=== PATIENT | female | born 1950 | race Caucasian/White ===

== ENCOUNTER → 2016-10-10 | Outpatient (CLI) | payer MEDICARE ==
--- NOTE | 2016-10-10 11:25 | MM ---
Reason for exam: screening (asymptomatic). Last mammogram was performed 1 year ago. History: Patient is postmenopausal. Family history of breast cancer in paternal aunt at age 61 and breast cancer in cousin at age 47. Physical Findings: A clinical breast exam by your physician is recommended on an annual basis and results should be correlated with mammographic findings. MG 3D Screening Mammo W/Cad Bilateral CC and MLO view(s) were taken. Prior study comparison: October 05, 2015, bilateral MG screening mammo w CAD. June 05, 2014, bilateral MG screening mammo w CAD. There are scattered fibroglandular densities. There is no discrete abnormality. No significant changes when compared with prior studies. ASSESSMENT: Negative, BI-RAD 1 RECOMMENDATION: Routine screening mammogram of both breasts in 1 year.
--- NOTE | 2016-10-10 17:02 | BD ---
EXAMINATION TYPE: MG DEXA axial skeleton. DATE OF EXAM: 10/10/2016 CLINICAL HISTORY: 66-year-old female osteoporosis Height: 60.25 Weight: 171 FRAX RISK QUESTIONS: Alcohol (3 or more units per day): no Family History (Parent hip fracture): no Glucocorticoids (More than 3mos): no (Ex: prednisone, prednisolone, methylprednisolone, dexamethasone, and hydrocortisone). History of Fracture in Adulthood: no Secondary Osteoporosis: 1. Type 1 Diabetes: no 2. Hyperthyroidism: no 3. Menopause before 45: no 4. Malnutrition: no 5. Chronic liver disease: no Rheumatoid Arthritis: no Current Tobacco Use: no RISK FACTORS HISTORY OF: Hip Fracture (Right/Left): no Spine Fracture: no History of Wrist Fracture: no Surgery to Spine/Hip(right/left)/Wrist (right/left): no Family History of Osteoporosis: yes Active: yes Diet low in dairy products/other sources of calcium: no Postmenopausal woman: yes Take estrogen and/or progesterone medications: no Lost more than 2 inches in height since high school: unsure; states height at one time may have been about 62 inches Frequent falls: no Poor Health: no Hyperparathyroidism: no Adrenal Insufficiency: no MEDICATIONS: Prednisone or other steroids: no Thyroid Medications: no Osteoporosis Medications: no Additional Medications: cholesterol meds, blood pressure meds EXAM MEASUREMENTS: Bone mineral densitometry was performed using the [employer] System. Bone mineral density as measured about the Lumbar spine is: ----- L1-L4(G/cm2): 1.193 T Score Values are as follows: ----- L2: -1.3 ----- L3: 1.3 ----- L4: 0.9 ----- L1-L4: 0.1 Bone mineral density has: Decreased -0.5% since study of: 03/11/2013 Bone mineral density about the R hip (g/cm2): 0.918 Bone mineral density about the L hip (g/cm2): 0.917 T Score values are as follows: -----R Neck: -0.9 -----L Neck: -0.9 -----R Total: -0.1 -----L Total: -0.1 Bone mineral density has: Increased 1.4% since study of: 03/11/2013 IMPRESSION: Osteopenia (as indicated by T score values average between L1 and L2 vertebral bodies). There is slightly increased risk of fracture and the patient may be considered for treatment. Re-Screen 2-5 years. NOTE: T-SCORE=SD OF THE YOUNG ADULT MEAN.
== END | disposition home or self-care (01) ==
LOC: RADMAMWWP 07:35
PROVIDERS: ATTEND Internal Medicine Geriatric Medicine
DX: Z12.31 Encounter for screening mammogram for malignant neoplasm of breast (principal); M85.80 Other specified disorders of bone density and structure, unspecified site
CPT/HCPCS: 77080; 77063; G0202

== ENCOUNTER 2018-01-02 10:47 | Day surgery (SDC) | payer MEDICARE ==
[2017-12-31 13:55] VITALS: BMI 32.1
[~2018-01-02 10:47] MED LIST: LACTATED RINGERS 1,000 ML IV SCH; LIDOCAINE 1% 20 ML VIAL (10MG/ML) FOR IV START INTRADERMA PRN
[2018-01-02 11:05] VITALS: RESP 16; TEMP 97.9
[2018-01-02] MEDS ORDERED: PROPOFOL 10 MG/ML 20 ML VIAL IV ONE (12:10)
[2018-01-02] MEDS ORDERED: LIDOCAINE 1% INJ 10MG/ML (20 ML MDV) ONE (12:10)
--- NOTE | 2018-01-02 12:25 | P.PCN ---
Date of Procedure: 01/02/18 Procedure(s) Performed: BRIEF HISTORY: Patient is a 67-year-old pleasant female, scheduled for an elective colonoscopy as a part of evaluation of change in bowel habits and lower abdominal pain for the last 1 month duration. She also has prior history of colon polyps. PROCEDURE PERFORMED: Colonoscopy. PREOPERATIVE DIAGNOSIS: History of colon polyps/change in bowel habits. IV sedation per Anesthesia. PROCEDURE: After informed consent was obtained, the patient, was brought into the endoscopy unit. IV sedation was administered by Anesthesia under continuous monitoring. Digital rectal examination was normal. Initially the Olympus CF- 160 flexible video colonoscope was then inserted in the rectum, gradually advanced into the cecum without any difficulty. Careful examination was performed as the scope was gradually being withdrawn. Ileocecal valve and the appendiceal orifice were visualized and appeared normal. Prep was excellent. Mucosa of the cecum, ascending colon, transverse colon, descending colon, sigmoid colon, and rectum appeared normal. Scattered sigmoid diverticula cyst. Retroflexion was performed in the rectum and no lesions were seen. The patient tolerated the procedure well. IMPRESSION: Normal-appearing colon from rectum to cecum with no evidence of colorectal neoplasia . Scattered sigmoidal diverticulosis. RECOMMENDATIONS: Findings of this examination were discussed with the patient as well as a family. She was advised to have a repeat surveillance colonoscopy in 5 years from now because of the prior history of colon polyps.
[2018-01-02 12:57] VITALS: BP 148/86; PULSE 52
== END 2018-01-02 13:14 | disposition home or self-care (01) ==
LOC: ORWHC2ENDO 10:47
PROVIDERS: ATTEND Internal Medicine Gastroenterology
DX: K57.30 Diverticulosis of large intestine without perforation or abscess without bleeding (principal); Z87.19 Personal history of other diseases of the digestive system; E78.5 Hyperlipidemia, unspecified; Z88.5 Allergy status to narcotic agent; Z91.048 Other nonmedicinal substance allergy status; Z79.82 Long term (current) use of aspirin; Z79.899 Other long term (current) drug therapy
CPT/HCPCS: 45378; J2001; J2704

== ENCOUNTER → 2018-11-20 | Outpatient (CLI) | payer MEDICARE ==
--- NOTE | 2018-11-20 15:32 | BD ---
EXAMINATION TYPE: Axial Bone Density DATE OF EXAM: 11/20/2018 COMPARISON: 2017 CLINICAL HISTORY: M [age] Height: 4 FT 11 1/2 IN Weight: 171 FRAX RISK QUESTIONS: RISK FACTORS HISTORY OF: Active: YES Postmenopausal woman: TOTAL HYST AGE 53 Lost more than 2 inches in height since high school: YES MEDICATIONS: Additional Medications: SIMVASTATIN, HYDROCHLOROTHIAZIDE Additional History: EXAM MEASUREMENTS: Bone mineral densitometry was performed using the [employer] System. Bone mineral density as measured about the Lumbar spine is: ----- L1-L4(G/cm2): 1.230 T Score Values are as follows: ----- L2: -0.4 ----- L3: 1.6 ----- L4: 1.0 ----- L1-L4: 0.4 Bone mineral density has: INCREASED 3.9 % since study of: 2016 Bone mineral density about the R hip (g/cm2): 0.886 Bone mineral density about the L hip (g/cm2): 0.880 T Score values are as follows: -----R Neck: -1.1 -----L Neck: -1.1 -----R Total: -0.5 -----L Total: -0.5 Bone mineral density has: DECREASED -5.5 % since study of: 2016 IMPRESSION: Osteopenia (T Score between -2.5 and -1). There is slightly increased risk of fracture and the patient may be considered for treatment. Re-Screen 2-5 years. NOTE: T-SCORE=SD OF THE YOUNG ADULT MEAN.
--- NOTE | 2018-11-21 12:07 | MM ---
Reason for exam: screening (asymptomatic). Last mammogram was performed 2 years and 1 month ago. History: Patient is postmenopausal. Family history of breast cancer in paternal aunt at age 61 and breast cancer in cousin at age 47. MG 3D Screening Mammo W/Cad Bilateral CC and MLO view(s) were taken. Prior study comparison: October 10, 2016, bilateral MG 3d screening mammo w/cad. October 05, 2015, bilateral MG screening mammo w CAD. There are scattered fibroglandular densities. There is a similar faint 2mm group of calcifications in the upper central right breast at middle depth compared to 2016. No suspicious abnormality. No significant changes when compared with prior studies. ASSESSMENT: Benign, BI-RAD 2 RECOMMENDATION: Routine screening mammogram of both breasts in 1 year.
== END | disposition home or self-care (01) ==
LOC: RADMAMWWP 09:35
PROVIDERS: ATTEND Internal Medicine Geriatric Medicine
DX: Z12.31 Encounter for screening mammogram for malignant neoplasm of breast (principal); M81.0 Age-related osteoporosis without current pathological fracture; M85.80 Other specified disorders of bone density and structure, unspecified site
CPT/HCPCS: 77063; 77067; 77080

== ENCOUNTER → 2020-03-01 | Outpatient (CLI) | payer MEDICARE ==
--- NOTE | 2020-03-01 15:49 | CT ---
EXAMINATION TYPE: CT abdomen pelvis wo con DATE OF EXAM: 03/01/2020 HISTORY: lower anterior abdominal pain CT DLP: 564.3 mGycm. Automated Exposure Control for Dose Reduction was Utilized. TECHNIQUE: CT scan of the abdomen and pelvis is performed without oral or IV contrast. COMPARISON: NONE FINDINGS: Within the limitations of a non-contrast study, the following observations are made. LUNG BASES: No significant abnormality is appreciated. LIVER/GB: No significant abnormality is appreciated. PANCREAS: No significant abnormality is seen. SPLEEN: No significant abnormality is seen. ADRENALS: No significant abnormality is seen. KIDNEYS: No renal stones or hydronephrosis is present bilaterally. BOWEL: Some diverticula scattered throughout the left and sigmoid colon. No CT evidence for acute div erticulitis. No suspicious small or large bowel dilatation. GENITAL ORGANS: Uterus surgically absent or markedly atrophic. LYMPH NODES: No greater than 1cm abdominal or pelvic lymph nodes are appreciated. OSSEOUS STRUCTURES: Moderate disc space narrowing and vacuum disc phenomenon L3-L4 level and L4-L5 le vels. Slight grade 1 retrolisthesis L2 on L3 with mild/moderate disc space narrowing and anterior spu rring. Facet arthropathy lower lumbar levels. OTHER: No significant additional abnormality is seen. IMPRESSION: No bowel obstruction. No acute findings are evident on noncontrast CT. Colonic diverticul osis without convincing CT evidence for acute diverticulitis.
== END | disposition home or self-care (01) ==
LOC: RADCTMAIN 14:09
PROVIDERS: ATTEND Internal Medicine Geriatric Medicine
DX: R10.30 Lower abdominal pain, unspecified (principal)
CPT/HCPCS: 74176

== ENCOUNTER 2020-04-19 09:58 | Day surgery (SDC) | payer MEDICARE ==
[2020-04-16 13:40] VITALS: BMI 31.9
[2020-04-19 10:45] VITALS: RESP 18; TEMP 99.3
[2020-04-19] MEDS ORDERED: LACTATED RINGERS 1,000 ML IV ONE (10:54)
[2020-04-19] MEDS ORDERED: PROPOFOL 10 MG/ML 20 ML VIAL IV ONE (11:35)
[2020-04-19] MEDS ORDERED: LIDOCAINE 1% INJ 10MG/ML (20 ML MDV) ONE (11:35)
--- NOTE | 2020-04-19 11:54 | P.PCN ---
Date of Procedure: 04/19/20 Procedure(s) Performed: BRIEF HISTORY: Patient is a 70-year-old pleasant female scheduled for an elective colonoscopy as a part of evaluation of positive cologuard. She has been complaining of intermittent lower abdominal pain for the last 6 weeks duration. PROCEDURE PERFORMED: Colonoscopy. PREOPERATIVE DIAGNOSIS: Positive cologuard. IV sedation per Anesthesia. PROCEDURE: After informed consent was obtained, the patient, was brought into the endoscopy unit. IV sedation was administered by Anesthesia under continuous monitoring. Digital rectal examination was normal. Initially the Olympus CF-160 flexible video colonoscope was then inserted in the rectum, gradually advanced into the cecum without any difficulty. Careful examination was performed as the scope was gradually being withdrawn. Ileocecal valve and the appendiceal orifice were visualized and appeared normal. Prep was excellent. Mucosa of the cecum, ascending colon, transverse colon, descending colon, sigmoid colon, and rectum appeared normal. Scattered sigmoid diverticulosis. Retroflexion was performed in the rectum and small internal hemorrhoids were seen. The patient tolerated the procedure well. IMPRESSION: Normal-appearing colon from rectum to cecum no evidence of colitis or colorectal neoplasia. Scattered sigmoid diverticulosis Small internal hemorrhoids RECOMMENDATIONS: Findings of this examination were discussed with the patient as well as a family.. He was advised to be a high-fiber diet and he can have a repeat screening colonoscopy in 5 years from now because of the prior history of colon polyps
[2020-04-19 12:27] VITALS: BP 143/86; PULSE 57
== END 2020-04-19 12:41 | disposition home or self-care (01) ==
LOC: ORWHC2ENDO 09:58
PROVIDERS: ATTEND Internal Medicine Gastroenterology
DX: K57.30 Diverticulosis of large intestine without perforation or abscess without bleeding (principal); K64.8 Other hemorrhoids; Z79.82 Long term (current) use of aspirin; Z79.899 Other long term (current) drug therapy; I10 Essential (primary) hypertension; E78.5 Hyperlipidemia, unspecified; Z88.5 Allergy status to narcotic agent
CPT/HCPCS: 45378; J2001; J2704

== ENCOUNTER → 2020-11-29 | Outpatient (CLI) | payer MEDICARE ==
--- NOTE | 2020-11-29 15:39 | BD ---
EXAMINATION TYPE: Axial Bone Density DATE OF EXAM: 11/29/2020 COMPARISON: 11/20/2018 CLINICAL HISTORY: Height: 59.5 IN Weight: 173 LBS RISK FACTORS HISTORY OF: Active: YES Postmenopausal woman: TOTAL HYST AGE 55 MEDICATIONS: Additional Medications: MULTI VIT, BABY ASPIRIN 81 MG, HCTZ, ATORVASTATIN, EXAM MEASUREMENTS: Bone mineral densitometry was performed using the [employer] System. Bone mineral density as measured about the Lumbar spine is: ----- L1-L4(G/cm2): 1.242 T Score Values are as follows: ----- L2: -0.4 ----- L3: 1.3 ----- L4: 1.2 ----- L1-L4: 0.5 Bone mineral density has: Increased 0.1% since study of: 11/20/2018 Bone mineral density about the R hip (g/cm2): 0.905 Bone mineral density about the L hip (g/cm2): 0.878 T Score values are as follows: -----R Neck: -1.0 -----L Neck: -1.1 -----R Total: -0.3 -----L Total: -0.1 Bone mineral density has: Increased 3.9% since study of: 11/20/2018 IMPRESSION: No evidence for osteoporosis or osteopenia. NOTE: T-SCORE=SD OF THE YOUNG ADULT MEAN.
--- NOTE | 2020-12-01 09:28 | MM ---
Reason for exam: screening (asymptomatic). Last mammogram was performed 2 years ago. History: Patient is postmenopausal. Family history of breast cancer in paternal aunt at age 61 and breast cancer in paternal cousin at age 47. Physical Findings: A clinical breast exam by your physician is recommended on an annual basis and results should be correlated with mammographic findings. MG 3D Screening Mammo W/Cad Bilateral CC and MLO view(s) were taken. Prior study comparison: November 20, 2018, bilateral MG 3d screening mammo w/cad. October 10, 2016, bilateral MG 3d screening mammo w/cad. October 05, 2015, bilateral MG screening mammo w CAD. There are scattered fibroglandular densities. No significant changes when compared with prior studies. ASSESSMENT: Negative, BI-RAD 1 RECOMMENDATION: Routine screening mammogram of both breasts in 1 year.
== END | disposition home or self-care (01) ==
LOC: RADMAMWWP 13:20
PROVIDERS: ATTEND Internal Medicine Geriatric Medicine
DX: Z12.31 Encounter for screening mammogram for malignant neoplasm of breast (principal); Z78.0 Asymptomatic menopausal state; Z80.3 Family history of malignant neoplasm of breast
CPT/HCPCS: 77063; 77067; 77080

== ENCOUNTER → 2021-11-30 | Outpatient (CLI) | payer MEDICARE ==
--- NOTE | 2021-12-02 18:31 | MM ---
Reason for Exam: Screening (asymptomatic). Last screening mammogram was performed 12 month(s) ago. Patient History: Menarche at age 9. First Full-Term at age 22. Left ovary removed at age 54. Right ovary removed at age 54. Hysterectomy at age 54. Postmenopausal. Paternal cousin had breast cancer, age 47. Paternal aunt had breast cancer, age 61. Risk Values: Neela 5 year model risk: 1.7%. NCI Lifetime model risk: 4.3%. Prior Study Comparison: 10/10/2016 Bilateral Screening Mammogram, [facility]. 11/20/2018 Bilateral Screening Mammogram, [facility]. 11/29/2020 Bilateral Screening Mammogram, [facility]. Tissue Density: The breast tissue is almost entirely fat. Findings: Analyzed By CAD. There is no suspicious group of microcalcifications or new suspicious mass in either breast. Overall Assessment: Negative, BI-RAD 1 Management: Screening Mammogram of both breasts in 1 year. A clinical breast exam by your physician is recommended on an annual basis and results should be correlated with mammographic findings. Electronically signed and approved by: John Womack DO
== END | disposition home or self-care (01) ==
LOC: RADMAMWWP 06:50
PROVIDERS: ATTEND Internal Medicine Geriatric Medicine
DX: Z12.31 Encounter for screening mammogram for malignant neoplasm of breast (principal); Z78.0 Asymptomatic menopausal state; Z80.3 Family history of malignant neoplasm of breast
CPT/HCPCS: 77063; 77067

== ENCOUNTER → 2022-12-19 | Outpatient (CLI) | payer MEDICARE ==
--- NOTE | 2022-12-19 20:06 | BD ---
EXAMINATION TYPE: Axial Bone Density DATE OF EXAM: 12/19/2022 CLINICAL HISTORY: 72 years old Female. ICD-10 CODE: Z12.31 SCREEN MAMMOGRAM M81.0 AGE-RELATED OSTEOP OR Height: 5 ft Weight: 171 FRAX RISK QUESTIONS: Alcohol (3 or more units per day): no Family History (Parent hip fracture): no Glucocorticoids (More than 3mos): no (Ex: prednisone, prednisolone, methylprednisolone, dexamethasone, and hydrocortisone). History of Fracture in Adulthood: no Secondary Osteoporosis: 1. Type 1 Diabetes: no 2. Hyperthyroidism: no 3. Menopause before 45: no 4. Malnutrition: no 5. Chronic liver disease: no Rheumatoid Arthritis: no Current Tobacco Use: no RISK FACTORS HISTORY OF: Surgery to Spine/Hip(right/left)/Wrist (right/left): no Family History of Osteoporosis: no Active: yes Diet low in dairy products/other sources of calcium: no Postmenopausal woman: yes Take estrogen and/or progesterone medications:no Lost more than 2 inches in height since high school: no Frequent falls: no Poor Health: good Hyperparathyroidism: no Adrenal Insufficiency: no MEDICATIONS: Additional Medications: Lipitor, h2o pill, Atorvastatin, Additional History: EXAM MEASUREMENTS: Bone mineral densitometry was performed using the [employer] System. Bone mineral density as measured about the Lumbar spine is: ----- L1-L4(G/cm2): 1.277 T Score Values are as follows: ----- L1: 0.0 ----- L2: 0.0 ----- L3: 1.1 ----- L4: 1.9 ----- L1-L4: 0.8 Z Score Values are as follows: ----- L1: 1.3 ----- L2: 1.3 ----- L3: 2.5 ----- L4: 3.2 ----- L1-L4: 2.1 Bone mineral density has: increased 2.8 % since study of: 2020 Bone mineral density about the R hip (g/cm2): 0.891 Bone mineral density about the L hip (g/cm2): 0.881 T Score values are as follows: -----R Neck: -1.1 -----L Neck: -1.1 -----R Total: -0.5 -----L Total: -0.3 Z Score values are as follows: -----R Neck: 0.6 -----L Neck: 0.5 -----R Total: 0.9 -----L Total: 1.2 Bone mineral density has: decreased -1.8 % since study of: 2020 FRAX%s: The graph provided illustrates a 9.4 % chance for a major osteoporotic fx and a 1.4 % chance for the hips probability for fx in 10 years time. IMPRESSION: Osteopenia (T Score between -2.5 and -1). There is slightly increased risk of fracture and the patient may be considered for treatment. Re-Screen 2-5 years. NOTE: T-SCORE=SD OF THE YOUNG ADULT MEAN.
--- NOTE | 2022-12-20 08:41 | MM ---
Reason for Exam: Screening (asymptomatic). Last mammogram was performed 1 year(s) and 1 month(s) ago. Patient History: Menarche at age 9. First Full-Term at age 22. Left ovary removed at age 54. Right ovary removed at age 54. Hysterectomy at age 54. Postmenopausal. Paternal cousin had breast cancer, age 47. Paternal aunt had breast cancer, age 61. Risk Values: Neela 5 year model risk: 1.7%. NCI Lifetime model risk: 4.0%. Prior Study Comparison: 11/20/2018 Bilateral Screening Mammogram, [facility]. 11/29/2020 Bilateral Screening Mammogram, [facility]. 11/30/2021 Bilateral MG 3D screening mammo w/cad, [facility]. Tissue Density: The breast tissue is almost entirely fat. Findings: Analyzed By CAD. There is no suspicious group of microcalcifications or new suspicious mass. Benign-appearing calcifications right breast. Overall Assessment: Benign, BI-RAD 2 Management: Screening Mammogram of both breasts in [address] [facility] will attempt to contact patient to return for supplemental views and ultrasound if indicated. Patient should continue monthly self-breast exams. A clinical breast exam by your physician is recommended on an annual basis. This exam should not preclude additional follow-up of suspicious palpable abnormalities. Note on Neela scores and lifetime risk: 1. A Neela score greater than 3% is considered moderate risk. If this is the case, consider specialist referral to assess eligibility for a risk reducing agent. 2. If overall lifetime risk for the development of breast cancer is 20% or higher, the patient may qualify for future screening with alternating mammogram and breast MRI. Electronically signed and approved by: John Womack DO
== END | disposition home or self-care (01) ==
LOC: RADMAMWWP 07:16
PROVIDERS: ATTEND Internal Medicine Geriatric Medicine
DX: Z12.31 Encounter for screening mammogram for malignant neoplasm of breast (principal); M81.0 Age-related osteoporosis without current pathological fracture; M85.89 Other specified disorders of bone density and structure, multiple sites; Z78.0 Asymptomatic menopausal state; Z80.3 Family history of malignant neoplasm of breast
CPT/HCPCS: 77063; 77067; 77080